=== PATIENT | female | born 1965 | race Caucasian/White ===

== ENCOUNTER 2018-06-12 05:56 | Day surgery (SDC) | payer BC, OTHER ==
[2018-06-08 17:11] VITALS: BMI 58.5
[2018-06-12] VITALS (14 sets, daily range): BP systolic 104–139; BP diastolic 69–82; PULSE 56–70; RESP 12–20; Ht 147.3 cm; Wt 56.5 kg
[~2018-06-12] VITALS: Ht 147.3 cm; Wt 56.5 kg
[2018-06-12] MEDS ORDERED: LORA-186 PO (06:47)
[2018-06-12] MEDS ORDERED: LIDOCAINE 2% (SDV) 5 ML INJ ONE (07:00)
[2018-06-12] MEDS ORDERED: LACTATED RINGER'S 1,000 ML IV* SCH (07:00)
--- NOTE | 2018-06-12 07:04 | HPN ---
Date/Time of Note Date/Time of Note DATE: 06/12/18 TIME: 07:03 Interval H&P Admission Note Pt. seen H&P reviewed: No system changes FRANCISCA CARROLL MD Jun 12, 2018 07:04
--- NOTE | 2018-06-12 07:05 | PREAC ---
Date/Time of Note Date/Time of Note DATE: 06/12/18 TIME: 07:03 Anesthesia Eval and Record Evaluation Time Pre-Procedure Interview DATE: 06/12/18 TIME: 07:03 Age 52 Sex female NPO: 8 hrs Preoperative diagnosis hpv Planned procedure pap smear, endocervical curettage Past Medical History Past Medical History: Includes (seasonal allergies) Surgery & Anesthesia Issues No known issue Meds Anticoagulation: No Beta Yamilet within 24 hr: No Reason Beta Yamilet not given: Pt. not on B-Yamilet Reported Medications Loratadine* (Claritin*) 10 Mg Tablet, 10 MG PO DAILY, TAB 06/12/18 Current Medications Lactated Ringer's 1,000 ml @ 125 mls/hr Q8H IV* ; Start 06/12/18 at 07:00; Stop 06/12/18 at 14:59 Meds reviewed: Yes Allergies Coded Allergies: No Known Allergies (Verified Allergy, Unknown, 06/12/18) Allergies Reviewed: Yes Labs/Studies Labs Reviewed: Reviewed by anesthesiologist test: Negative Studies: ECG (sr, L axis deviation), CXR Pre-procedure Exam Airway: Adequate mouth opening, Adequate thyromental dist Mallampati: Mallampati II Teeth: Normal Lung: Normal Heart: Normal ASA Physical Status ASA physical status: 1 Emergency: None Planned Anesthetic General/MAC: LMA Pre-operative Attestations Prior to commencing anesthesia and surgery, the patient was re-evaluated, there was verification of: *The patient's identity *The results of appropriate recent lab work and preoperative vital signs *The above evaluation not changing prior to induction *Anesthetic plan, risk benefits, alternative and complications discussed with pa tient/family; questions answered; patient/family understands, accepts and wishes to proceed. PEPPER MOISE Jun 12, 2018 07:05
[2018-06-12] MEDS ORDERED: PROPOFOL 40 ML ONE (07:25)
[2018-06-12] MEDS ORDERED: FENTAnyl 50 MCG/ML VIAL ONE (07:25)
[2018-06-12] MEDS ORDERED: MIDAZOLAM 1 MG/ML 2 ML INJ ONE (07:25)
[2018-06-12] MEDS ORDERED: FAMOTIDINE 20 MG INJ ONE (07:26)
[2018-06-12] MEDS ORDERED: FENTAnyl 50 MCG/ML VIAL IV PRN ×2 (07:30)
[2018-06-12] MEDS ORDERED: METOCLOPRAMIDE 10 MG INJ IV ONE (07:30)
[2018-06-12] MEDS ORDERED: DIPHENHYDRAMINE 50 MG INJ IV PRN (07:30)
[2018-06-12] MEDS ORDERED: HYDROmorphONE 1 MG/5 ML IV SYRINGE IV PRN ×2 (07:30)
[2018-06-12] MEDS ORDERED: OXYCODONE/ACETAMINOPHEN (5/325) TAB PO PRN ×2 (07:30)
[2018-06-12] MEDS ORDERED: LABETALOL HCL 20MG INJ IV PRN (07:30)
[2018-06-12] MEDS ORDERED: ONDANSETRON 4 MG INJ IV PRN (07:30)
[2018-06-12] MEDS ORDERED: MEPERIDINE 25 MG INJ IV PRN (07:30)
[2018-06-12] MEDS ORDERED: morphine (1 MG/ML) 10ML SYRINGE IV PRN ×2 (07:30)
[2018-06-12] MEDS ORDERED: ALBUTEROL 0.083% (NEB) 2.5 MG/3 ML AMP HHN PRN (07:30)
[2018-06-12] MEDS ORDERED: CEFAZOLIN 1 GM INJ ONE (07:45)
--- NOTE | 2018-06-12 08:30 | PAC ---
Date/Time of Note Date/Time of Note DATE: 06/12/18 TIME: 08:29 Post-Anesthesia Notes Post-Anesthesia Note Last documented vital signs Vital Signs Date Temp Pulse Resp B/P (MAP) Pulse Ox O2 O2 Flow FiO2 Time Delivery Rate 06/12/18 97.9 70 18 125/71 99 face 0824 mask Activity: WNL Respiratory function: WNL Cardiovascular function: WNL Mental status: Baseline Pain reasonably controlled: Yes Hydration appropriate: Yes Nausea/Vomiting absent: Yes PEPPER MOISE Jun 12, 2018 08:30
--- NOTE | 2018-06-12 09:08 | SIPON ---
Date/Time of Note Date/Time of Note DATE: 06/12/18 TIME: 09:06 Operative Report Preoperative Diagnosis cervical stenosis Postoperative Diagnosis same Operation/Procedure Performed pap smear ECC unsatisfactory Surgeon see signature line nurses assistant none Anesthesia: MAC Estimated blood loss: none Transfusion Required none Specimen pap ecc Grafts/Implants none Complications none FRANCISCA CARROLL MD Jun 12, 2018 09:08
--- NOTE | 2018-06-12 09:09 | PD.PPDC ---
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
--- NOTE | 2018-06-14 00:44 | OPR ---
DATE OF OPERATION: 06/12/2018 PREOPERATIVE DIAGNOSES: 1. Unsatisfactory Pap smear. 2. Cervical stenosis status post cold conization of cervix and LEEP procedure on the cervix, two sep arate occasions. POSTOPERATIVE DIAGNOSES: 1. Unsatisfactory Pap smear. 2. Cervical stenosis status post cold conization of cervix and LEEP procedure on the cervix, two sep arate occasions. 3. Severe cervical stenosis. NAME OF PROCEDURE: Pap smear and endocervical curettage. ANESTHESIA: General. ANESTHESIOLOGIST: SURGEON: Jarocho Riggins MD ESTIMATED BLOOD LOSS: Negligible. PROCEDURE: Under the proper induction of general anesthesia, the patient was placed in dorsal lithot dana position. Perineal area and prior to the prepping of the patient, Pap smear was attempted in usual fashion but was not satisfactory because of the severe cervical stenosis. After the Pap sme ar was done, the perineal and vagina wall was prepped and draped in usual aseptic manner. Weighted s peculum was introduced, cervix was identified with difficulty due to the shortening of the cervix, mo st likely due to the previous two conization of the cervix. First one was cold conization, second on e was a LEEP. Anterior lip of the cervix was grasped with a single tooth tenaculum. Cervical os was identified which was extremely stenotic, and there was no opening to insert Kevorkian forceps or any dilator or even Nahomy forceps. With multiple attempts, the ECC was not successfully done, only the outside scraping was obtained by Kevorkian forceps and decided to terminate the procedure. All the i nstruments were removed from the operative field and the patient was sent to the recovery room in sta ble condition. Dictated By: JAROCHO SIBLEY/AYANA Conf#: [id number] DID#: [id number]
== END 2018-06-12 10:22 | disposition home or self-care (01) ==
LOC: SDS 05:56
PROVIDERS: ATTEND Obstetrics & Gynecology
DX: N88.2 Stricture and stenosis of cervix uteri (principal)
CPT/HCPCS: 57505; 88305; J0690; J2250; J2765; J3010